=== PATIENT | male | born 1940 | race Caucasian/White ===

== ENCOUNTER 2020-11-27 15:59 | Inpatient (IN) | payer MEDICARE, OTHER, SELFPAY ==
[2020-11-27] VITALS (25 sets, daily range): BP systolic 133–194; BP diastolic 61–85; PULSE 64–82; RESP 12–31; TEMP 36.4; O2SAT 87–100; BMI 32.3
--- NOTE | ~2020-11-27 | CT_ITS ---
EXAMINATION: CTA chest PE protocol DATE: 11/27/2020 18:57 INDICATION: Cough and shortness of breath TECHNIQUE: Computed tomography angiography (CTA) of the chest was performed with 100 mL Omnipaque-350 intravenous contrast timed to evaluate the pulmonary arteries. Coronal maximum intensity projection 3D-reconstructions were created by the technologist. The dose-length product (DLP) was 645.04 mGy-cm. Automated exposure control and iterative reconstruction technique were employed. COMPARISON: None. FINDINGS: The pulmonary arteries are well-opacified. There are pulmonary emboli in the medial right l ower lobe. There are diffuse groundglass opacities throughout all lung zones. There is no pleural eff usion or pneumothorax. The heart size is upper limits of normal. There is mild bilateral hilar lympha denopathy, likely reactive. Calcified coronary artery atherosclerosis is noted. There is a small slid ing hiatal hernia. Gynecomastia is noted. Cysts of the visualized kidneys measure up to 3.5 cm on the left. There is moderate thoracic spondylosis. IMPRESSION: 1. Pulmonary emboli in the medial right lower lobe. 2. Diffuse lung disease, consistent with COVID 19 pneumonia. These findings were discussed with Dr. Ben Castle DO in the Emergency Department at 1915 hour s on 11/27/2020. Reviewed, dictated and finalized at location A. IMPRESSION: 1. Pulmonary emboli in the medial right lower lobe. 2. Diffuse lung disease, consistent with COVID 19 pneumonia. These findings were discussed with Dr. Ben Castle DO in the Emergency D epartment at 1915 hours on 11/27/2020.
--- NOTE | ~2020-11-27 | XR_ITS ---
EXAMINATION: XR chest 1V portable EXAM DATE: 11/27/2020 16:36 INDICATION: cough,COVID +, shortness of breath. TECHNIQUE: Portable AP frontal chest x-ray was obtained. There is no prior study for comparison. FINDINGS: Scattered small to moderate amount of ill-defined bilateral airspace disease, appearance is consistent with provided history of COVID 19. Cardiomediastinal silhouette is normal. There is no pn eumothorax suspected. There are no pleural effusions. There is aortic arteriosclerosis. There are no osseous abnormalities identified. IMPRESSION: Small to moderate amount of COVID pneumonia. Reviewed, dictated and finalized at location A.
--- NOTE | 2020-11-27 16:27 | ED.SOB ---
HPI - SOB/Dyspnea General Chief Complaint: Shortness of Breath/Dyspnea Stated Complaint: SOB Time Seen by Provider: 11/27/20 16:09 Source: RN notes reviewed History of Present Illness HPI Narrative: Patient presents emergency department from home for shortness of breath. Patient states he tested positive for COVID-19 approximately 1 week ago. Patient states he been progressively more short of breath for the past 4 days when EMS arrived today the patient was noted to have an O2 sat in the low 80s and was placed on nonrebreather patient denies any fevers or chills chest pain abdominal pain nausea vomiting or any other symptoms states he had his first of his 2 Covid vaccinations but states that it made him sick and he did not receive his second 1 he denies tobacco use Related Data Home Medications Medication Instructions Recorded Confirmed allopurinol 11/27/20 aspirin PO 11/27/20 atorvastatin 11/27/20 finasteride mg 11/27/20 hydrochlorothiazide 11/27/20 nifedipine PO 11/27/20 Allergies Allergy/AdvReac Type Severity Reaction Status Date / Time No Known Allergies Allergy Mild Verified 11/27/20 16:05 Review of Systems Review of Systems: Gen.: Denies fevers or chills ENT: Denies congestion Respiratory: See HPI CV: Denies chest pain or palpitations GI: Denies abdominal pain nausea, emesis or diarrhea Musculoskeletal: Denies back pain or muscle pain Neuro: Denies numbness, tingling, weakness or focal weakness Skin: Denies rash Except as documented, all other systems reviewed and negative PMFSH Past Medical History Medical History (Updated 11/27/20 @ 19:27 by Ben Castle DO) Hypercholesterolemia Social History Social History (Updated 11/27/20 @ 16:28 by Ben Castle DO) Smoking status: Never smoker Exam Narrative: APPEARANCE: No acute distress, nontoxic, resting in bed EYES: EOMI HEENT: Normocephalic, atraumatic, OMM RESPIRATORY: No respiratory distress coarse breath sounds throughout bilateral lung olsen, no wheezing CARDIOVASCULAR: Regular rate and rhythm without murmurs rubs or gallops. ABDOMINAL: Soft, nontender, nondistended, no rebound or guarding MUSCULOSKELETAl: Moves all extremities. No clubbing, cyanosis or edema. NEURO: Awake and alert. Following commands, speech normal, no focal deficits SKIN:: Warm, dry. No rashes lesions or abrasions PSYCHIATRIC: Normal affect/mood, Course Course Emergency Course: Discussed with Dr. Osei presentation work-up agrees with admission at this time Discussed with patient and family results of workup and diagnosis. Discussed need for admission. Patient and family understand and agree to current treatment plan Vital Signs Vital signs: Vital Signs Pulse Rate 74 11/27/20 15:58 Respiratory Rate 24 H 11/27/20 15:58 Blood Pressure 163/85 H 11/27/20 15:58 Pulse Oximetry 91 11/27/20 15:58 Pulse Rate 73 11/27/20 18:31 Respiratory Rate 14 11/27/20 18:31 Blood Pressure 157/77 H 11/27/20 18:31 Pulse Oximetry 100 11/27/20 18:31 MDM - SOB/Dyspnea Lab Data Result diagrams: 11/27/20 16:26 11/27/20 16:26 Labs: Lab Results 11/27/20 11/27/20 11/27/20 Range/Units 16:26 16:26 16:26 WBC 7.8 (4.5-10.0) K/mm3 RBC 5.08 (4.6-6.20) M/mm3 Hgb 14.9 (14.0-18.0) g/dL Hct 43.6 (42.0-52.0) % MCV 85.8 (80-100) fl MCH 29.3 (26-34) pg MCHC 34.2 (32-36) g/dl RDW 14.2 (11.5-14.5) % Plt Count 269 (150-375) k/mm3 MPV 9.7 (7.4-10.4) fl Immature Gran % (Auto) 0.9 H (0-0.5) % Neut % (Auto) 83.9 H (45.5-73.1) % Lymph % (Auto) 10.2 L (18.3-44.2) % Evangeline % (Auto) 4.8 (2.6-8.5) % Eos % (Auto) 0.1 (0-4.4) % Baso % (Auto) 0.1 L (0.2-1.2) % Lymph # (Auto) 0.80 L (0.9-3.2) K/mm3 Evangeline # (Auto) 0.4 (0.1-0.6) K/mm3 Eos # (Auto) 0.0 (0-0.3) K/mm3 Baso # (Auto) 0.0 (0.0-0.1) K/mm3 Abs Immat Gran (auto) 0.07 H (0.
--- NOTE | 2020-11-27 16:29 | ECG_ITS ---
Measurements Intervals [place] Rate: 66 P: 67 [place]: 135 QRS: 34 QRSD: 87 T: 60 QT: 435 QTc: 458 Interpretive Statements SINUS RHYTHM ATRIAL PREMATURE COMPLEX CONSIDER INFERIOR INFARCT, AGE INDETERMINATE BORDERLINE T WAVE ABNORMALITY- HIGH LATERAL LEADS BASELINE WANDER- I, II, AVR, AVL, AVF, V1-V6 ABNORMAL ECG Electronically Signed On 11-27-2020 17:13:12 CDT by Glen Hernandez D.O.
[2020-11-27 16:43] LABS: Basophils Percent Auto 0.1 % (0.2-1.2); Eosinophils Percent Auto 0.1 % (0-4.4); Hematocrit 43.6 % (42.0-52.0); Hemoglobin 14.9 g/dL (14.0-18.0); Immature Granulocyte Absolute 0.07 K/mm3 (0.00-0.031); Immature Granulocyte Percent A 0.9 % (0-0.5); Lymphocytes Percent Auto 10.2 % (18.3-44.2); Mean Corpuscular HGB Conc 34.2 g/dl (32-36); Mean Corpuscular Hemoglobin 29.3 pg (26-34); Mean Corpuscular Volume 85.8 fl (80-100); Mean Platelet Volume 9.7 fl (7.4-10.4); Monocytes Absolute Auto 0.4 K/mm3 (0.1-0.6); Monocytes Percent Auto 4.8 % (2.6-8.5); Neutrophils Absolute Auto 6.6 K/mm3 (1.3-6.7); Neutrophils Percent Auto 83.9 % (45.5-73.1); Platelet Count Result 269 k/mm3 (150-375); Red Blood Count 5.08 M/mm3 (4.6-6.20); Red Cell Distribution Width 14.2 % (11.5-14.5); White Blood Count 7.8 K/mm3 (4.5-10.0)
[2020-11-27 16:51] LABS: Lactic Acid Reflex 2.9 mmol/L (0.7-2.1)
[2020-11-27 16:58] LABS: Alanine Aminotransferase 53 U/L (4-50); Albumin Level 4.4 g/dL (3.5-5.1); Alkaline Phosphatase 99 U/L (38-126); Anion Gap 15 mmol/L (8-16); Aspartate Amino Transferase 51 U/L (17-59); Bilirubin,Total 1.2 mg/dL (0.2-1.3); Blood Urea Nitrogen 28 mg/dL (9-20); CRP 6.7 mg/dL (<1.0); Calcium 9.2 mg/dL (8.4-10.2); Carbon Dioxide 30 mmol/L (22-30); Chloride 98 mmol/L (98-107); Estimated CRCL calculation 61 ml/min; Estimated Glomerular Filt Rate > 60; Glucose 145 mg/dL (65-110); Lactate Dehydrogenase 1016 U/L (313-618); Sodium 143 mmol/L (137-145)
[2020-11-27 17:08] LABS: D Dimer 7.12 ug/mL (<0.48)
[2020-11-27] MEDS: POTASSIUM CHLORIDE 20 MEQ TABLET 40 MEQ PO (18:41)
--- NOTE | 2020-11-27 19:22 | PM.IMHP ---
H&P: HPI History of Present Illness Date/Time: 11/27/20 19:22 Chief Complaint: Shortness of breath Narrative: This is an 80-year-old male with past medical history significant for dyslipidemia, hypertension, benign prostatic hyperplasia, gout. Patient presented to emergency room via EMS after his home pulse oximeter was down to 81% upon EMS arrival these number was confirmed patient was found to be saturating at 80% on room air and was placed on oxygen and brought to the emergency room. Patient tested positive for COVID a few days prior. He has been getting progressively more short of breath, dry cough, body aches and pain, fevers chills, poor appetite, generalized malaise. Preliminary workup was significant for CT angiogram PE protocol of the chest with pulmonary emboli and diffuse COVID-19 pneumonia infiltrates. Patient was on 15 L of oxygen at the time of my visit. Decision has been made to admit the patient for further management evaluation and treatment. Review of Systems Review of Systems: Shortness of breath, cough, generalized malaise ,poor appetite, low pulse ox. Constitutional: Constitutional: Reports chills, Reports fatigue, Reports fever(s), Reports lethargy, Reports malaise, Reports night sweats, Reports poor appetite and Reports weakness Eyes: Eyes: Denies change in vision ENT: Denies dysphagia, Denies nasal congestion, Denies nasal discharge, Denies nasal obstruction and Denies odynophagia Cardiovascular: Cardiovascular: Denies chest pain at rest, Denies chest pain with activity, Denies leg edema, Denies lightheadedness, Denies radiating jaw, neck or arm pain, Denies palpitations, Denies dyspnea on exertion and Denies orthopnea Respiratory: Respiratory: Reports cough, Reports dyspnea and Reports dyspnea on exertion Gastrointestinal: Gastrointestinal: Denies abdominal pain, Denies dyspepsia, Denies heartburn, Denies diarrhea, Denies nausea and Denies vomiting Genitourinary: Genitourinary: Reports no additional male genitourinary complaints Musculoskeletal: Musculoskeletal: Reports myalgias Integumentary/Breasts: Skin/Breast: Reports system reviewed and no additional complaints, except as docu Neurologic: Reports system reviewed and no additional complaints, except as documented Psychiatric: Psychiatric: Reports no additional psychiatric complaints Endocrine: Endocrine: Reports no additional endocrine complaints Hematologic/Lymphatic: Hematologic/Lymphatic: Reports no additional hematologic/lymphatic complaints Allergic/Immunologic: Allergic/Immunologic: Reports no additional allergic/immunologic complaints [facility] Past Medical History Medical History (Updated 11/27/20 @ 19:27 by Ben Castle DO) Hypercholesterolemia Social History Social History (Updated 11/27/20 @ 16:28 by Ben Castle DO) Smoking status: Never smoker Meds Home Medications and Allergies Home Medications Medication Instructions Recorded Confirmed Type allopurinol 11/27/20 History aspirin PO 11/27/20 History atorvastatin 11/27/20 History finasteride mg 11/27/20 History hydrochlorothiazide 11/27/20 History nifedipine PO 11/27/20 History Allergies Allergy/AdvReac Type Severity Reaction Status Date / Time No Known Allergies Allergy Mild Verified 11/27/20 16:05 Vital Signs Vital Signs - 24 hr 11/27/20 15:58 11/27/20 16:12 11/27/20 16:16 Pulse Rate 74 66 Respiratory Rate 24 H 21 H Blood Pressure 163/85 H 165/61 H Pulse Oximetry 91 95 97 11/27/20 16:17 11/27/20 16:30 11/27/20 16:31 Pulse Rate 64 69 71 Respiratory Rate 24 H 16 18 Blood Pressure 148/70 H Pulse Oximetry 98 98 94 11/27/20 16:45 11/27/20 16:46 11/27/20 17:04 Pulse Rate 66 68 72 Respiratory Rate 21 H 23 H 31 H Blood Pressure 133/61 Pulse Oximetry 95 94 87 L 11/27/20 17:09 11/27/20 17:15 11/27/20 17:16 Pulse Rate 68 66 66 Respiratory Rate 24 H 21 H 19 Blood Pressure 146/63 H 170/65 H Pulse Oximetry 100
[2020-11-27 19:36] LABS: Reflex Lactic Acid Yes or No Add Lactic
[2020-11-27] MEDS: ENOXAPARIN 120 MG/0.8 ML SYRINGE 110 MG SUB-Q (19:49)
[2020-11-27] MEDS: DEXAMETHASONE SOD PHOS INJ 4 MG/ML VIAL 6 MG IV PUSH (19:49)
[2020-11-27 21:28] LABS: Lactic Acid 1.9 mmol/L (0.7-2.1)
[2020-11-28] VITALS (15 sets, daily range): BP systolic 120–172; BP diastolic 50–66; PULSE 54–85; RESP 14–24; TEMP 36–36.6; O2SAT 92–100
[2020-11-28 03:04] LABS: Basophils Percent Auto 0.1 % (0.2-1.2); Hematocrit 41.9 % (42.0-52.0); Hemoglobin 14.2 g/dL (14.0-18.0); Immature Granulocyte Absolute 0.08 K/mm3 (0.00-0.031); Immature Granulocyte Percent A 1.1 % (0-0.5); Lymphocytes Percent Auto 8.1 % (18.3-44.2); Mean Corpuscular HGB Conc 33.9 g/dl (32-36); Mean Corpuscular Hemoglobin 29.3 pg (26-34); Mean Corpuscular Volume 86.6 fl (80-100); Mean Platelet Volume 9.9 fl (7.4-10.4); Monocytes Absolute Auto 0.3 K/mm3 (0.1-0.6); Monocytes Percent Auto 3.7 % (2.6-8.5); Neutrophils Absolute Auto 6.4 K/mm3 (1.3-6.7); Platelet Count Result 228 k/mm3 (150-375); Red Blood Count 4.84 M/mm3 (4.6-6.20); Red Cell Distribution Width 14.1 % (11.5-14.5); White Blood Count 7.4 K/mm3 (4.5-10.0)
[2020-11-28 03:25] LABS: Alanine Aminotransferase 48 U/L (4-50); Albumin Level 3.9 g/dL (3.5-5.1); Alkaline Phosphatase 93 U/L (38-126); Anion Gap 8 mmol/L (8-16); Aspartate Amino Transferase 44 U/L (17-59); Blood Urea Nitrogen 28 mg/dL (9-20); Calcium 8.8 mg/dL (8.4-10.2); Carbon Dioxide 33 mmol/L (22-30); Chloride 100 mmol/L (98-107); Estimated CRCL calculation 72 ml/min; Estimated Glomerular Filt Rate > 60; Glucose 155 mg/dL (65-110); Potassium 3.2 mmol/L (3.4-5.0); Sodium 141 mmol/L (137-145)
[2020-11-28 03:42] LABS: INR 1.1; Prothrombin Time 14.3 Seconds (11.1-14.7)
--- NOTE | 2020-11-28 04:23 | PC.NURSE ---
This patient, Osmany Silveira, was admitted to IMU Room 209-01. Patient/family oriented to hospital policies and general routines including ID bracelet, bed and alarms, visiting hours, pain management, procedures, bathroom and other care routines, personal items, smoking policy, room service/diet, and visiting hours. Information on how to activate the Rapid Response Team has been discussed. Patient/Family are encouraged to report perceived risks to care and to ask questions if they do not understand what they are told or what they should do.
[2020-11-28] MEDS: REMDESIVIR 200 MG/NS 250 ML 200 MG/250 ML BAG 250 MG IVPB (05:38)
[2020-11-28] MEDS: DEXAMETHASONE SOD PHOS INJ 4 MG/ML VIAL 6 MG IV PUSH (09:39)
[2020-11-28] MEDS: FINASTERIDE 5 MG TABLET BY MOUTH (09:39)
[2020-11-28] MEDS: ASPIRIN 81 MG ENTERIC TABLET PO (09:39)
[2020-11-28] MEDS: ENOXAPARIN 120 MG/0.8 ML SYRINGE 110 MG SUB-Q ×2 (09:39→21:05)
[2020-11-28] MEDS: allopurinoL 300 MG TABLET BY MOUTH (09:39)
[2020-11-28] MEDS: NIFEdipine 30 MG TAB.ER.24 90 MG PO (09:39)
[2020-11-28] MEDS: DEXAMETHASONE SOD PHOS INJ 4 MG/ML VIAL 14 MG IV PUSH (14:11)
[2020-11-28] MEDS: POTASSIUM CHLORIDE 20 MEQ TABLET 40 MEQ PO (14:13)
[2020-11-28] MEDS: FUROSEMIDE INJ 40 MG/4 ML VIAL IV PUSH (14:13)
--- NOTE | 2020-11-28 16:52 | PM.IMPN ---
Progress Note: A&P Assessment and Plan (1) Acute respiratory failure with hypoxia: Code(s): J96.01 - Acute respiratory failure with hypoxia Status: Acute Assessment and Plan: Patient currently requiring 15 L on high-flow nasal cannula Breathing treatments Continuous pulse ox try and keep oxygen saturation between 88 and 92% 11/28 Interval history: will start patient on dexamethasone 20mg IV daily for 5 days, remedesivir for 5 days, patient states is feeling much better compared to when he arrived not a short of breath, denies any fever or chills, currently on 15 L oxygen, plan is to wean the patient off oxygen as tolerated will continue to and further recommendation to follow, patient is instructed to sleep on prone position as much as possible, will continue to monitor. (2) Pulmonary embolism: Code(s): I26.99 - Other pulmonary embolism without acute cor pulmonale Status: Acute Assessment and Plan: On therapeutic Lovenox (3) COVID-19: Code(s): U07.1 - COVID-19 Status: Acute Assessment and Plan: Will start remdesivir dexamethasone Rocephin and Zithromax added for antibacterial coverage Subjective Date/time seen: 11/28/20 16:52 Chief Complaint: Shortness of breath Narrative: This is an 80-year-old male with past medical history significant for dyslipidemia, hypertension, benign prostatic hyperplasia, gout. Patient presented to emergency room via EMS after his home pulse oximeter was down to 81% upon EMS arrival these number was confirmed patient was found to be saturating at 80% on room air and was placed on oxygen and brought to the emergency room. Patient tested positive for COVID a few days prior. He has been getting progressively more short of breath, dry cough, body aches and pain, fevers chills, poor appetite, generalized malaise. Preliminary workup was significant for CT angiogram PE protocol of the chest with pulmonary emboli and diffuse COVID-19 pneumonia infiltrates. Patient was on 15 L of oxygen at the time of my visit. Decision has been made to admit the patient for further management evaluation and treatment. 11/28 Interval history: will start patient on dexamethasone 20mg IV daily for 5 days, remedesivir for 5 days, patient states is feeling much better compared to when he arrived not a short of breath, denies any fever or chills, currently on 15 L oxygen, plan is to wean the patient off oxygen as tolerated will continue to and further recommendation to follow, patient is instructed to sleep on prone position as much as possible, will continue to monitor. Review of Systems Review of Systems: All systems reviewed & are unremarkable except as noted in HPI and below Exam Narrative: Patient is comfortable, NAD HEENT: eyes are clear and none icteric, high-flow nasal cannula LUNGS: normal respiratory effort ABD: distended Lower extremities: no edema SKIN: nonjaundiced Neuro: grossly intact normal speech. Objective Data Vital Signs Vital Signs: Vital Signs - 24 hr 11/27/20 17:04 11/27/20 17:09 11/27/20 17:15 Temperature Pulse Rate 72 68 66 Respiratory Rate 31 H 24 H 21 H Blood Pressure 146/63 H Pulse Oximetry 87 L 100 99 11/27/20 17:16 11/27/20 17:31 11/27/20 17:39 Temperature Pulse Rate 66 79 72 Respiratory Rate 19 23 H 16 Blood Pressure 170/65 H 169/70 H Pulse Oximetry 98 100 99 11/27/20 17:45 11/27/20 17:46 11/27/20 18:01 Temperature Pulse Rate 79 76 73 Respiratory Rate 21 H 19 19 Blood Pressure 163/83 H 183/84 H Pulse Oximetry 100 96 95 11/27/20 18:02 11/27/20 18:15 11/27/20 18:30 Temperature Pulse Rate 74 70 73 Respiratory Rate 16 12 12 Blood Pressure Pulse Oximetry 95 97 100 11/27/20 18:31 11/27/20 19:45 11/27/20 21:56 Temperature Pulse Rate 73 69 69 Respiratory Rate 14 13 16 Blood Pressure 157/77 H 194/77 H 185/76 H Pulse Oximetry 100 98 100 11/27/20 23:23 11/27/20 23:25 11/28/20
[2020-11-28] MEDS: OPTI-GEN TAB 1 TABLET PO (18:36)
[2020-11-28] MEDS: ATORVASTATIN 40 MG TABLET 80 MG PO (18:36)
[2020-11-28] MEDS: NIACIN SA 500 MG TABLET 1000 MG PO (21:05)
[2020-11-29] VITALS (15 sets, daily range): BP systolic 109–134; BP diastolic 43–67; PULSE 59–92; RESP 20–24; TEMP 35.9–36.6; O2SAT 90–96
[2020-11-29] MEDS: WATER FOR IRRIGATION, STERILE 1,000 ML BOTTLE 1000 ML (00:25)
[2020-11-29 06:06] LABS: Basophils Percent Auto 0.1 % (0.2-1.2); Hematocrit 36.8 % (42.0-52.0); Hemoglobin 12.5 g/dL (14.0-18.0); Immature Granulocyte Absolute 0.15 K/mm3 (0.00-0.031); Immature Granulocyte Percent A 1.3 % (0-0.5); Lymphocytes Absolute Auto 0.87 K/mm3 (0.9-3.2); Lymphocytes Percent Auto 7.6 % (18.3-44.2); Mean Corpuscular Hemoglobin 28.7 pg (26-34); Mean Corpuscular Volume 84.6 fl (80-100); Mean Platelet Volume 10.1 fl (7.4-10.4); Monocytes Absolute Auto 0.6 K/mm3 (0.1-0.6); Monocytes Percent Auto 5.1 % (2.6-8.5); Neutrophils Absolute Auto 9.9 K/mm3 (1.3-6.7); Neutrophils Percent Auto 85.9 % (45.5-73.1); Platelet Count Result 279 k/mm3 (150-375); Red Blood Count 4.35 M/mm3 (4.6-6.20); White Blood Count 11.5 K/mm3 (4.5-10.0)
[2020-11-29 06:16] LABS: Alanine Aminotransferase 88 U/L (4-50); Albumin Level 3.6 g/dL (3.5-5.1); Alkaline Phosphatase 73 U/L (38-126); Anion Gap 7 mmol/L (8-16); Aspartate Amino Transferase 61 U/L (17-59); Bilirubin,Total 0.6 mg/dL (0.2-1.3); Blood Urea Nitrogen 36 mg/dL (9-20); CRP 4.2 mg/dL (<1.0); Calcium 8.4 mg/dL (8.4-10.2); Carbon Dioxide 34 mmol/L (22-30); Chloride 99 mmol/L (98-107); Estimated CRCL calculation 59 ml/min; Estimated Glomerular Filt Rate > 60; Glucose 155 mg/dL (65-110); Sodium 140 mmol/L (137-145)
[2020-11-29 06:19] LABS: INR 1.1; Prothrombin Time 14.2 Seconds (11.1-14.7)
[2020-11-29] MEDS: POTASSIUM CHLORIDE 20 MEQ TABLET 40 MEQ PO (10:21)
[2020-11-29] MEDS: OPTI-GEN TAB 1 TABLET PO ×2 (10:22→16:57)
[2020-11-29] MEDS: ASPIRIN 81 MG ENTERIC TABLET PO (10:22)
[2020-11-29] MEDS: FINASTERIDE 5 MG TABLET BY MOUTH (10:22)
[2020-11-29] MEDS: CHOLECALCIFEROL 1,000 UNITS TABLET 2000 UNITS PO (10:22)
[2020-11-29] MEDS: NIFEdipine 30 MG TAB.ER.24 90 MG PO (10:23)
[2020-11-29] MEDS: allopurinoL 300 MG TABLET BY MOUTH (10:23)
[2020-11-29] MEDS: ENOXAPARIN 120 MG/0.8 ML SYRINGE 110 MG SUB-Q ×2 (10:23→20:53)
[2020-11-29] MEDS: FUROSEMIDE INJ 40 MG/4 ML VIAL IV PUSH (10:28)
[2020-11-29] MEDS: REMDESIVIR 100 MG/NS 250 ML 100 MG/250 ML BAG 250 MG IVPB (11:09)
--- NOTE | 2020-11-29 14:17 | PM.IMPN ---
Progress Note: A&P Assessment and Plan (1) Acute respiratory failure with hypoxia: Code(s): J96.01 - Acute respiratory failure with hypoxia Status: Acute Assessment and Plan: Patient currently requiring 15 L on high-flow nasal cannula Breathing treatments Continuous pulse ox try and keep oxygen saturation between 88 and 92% 11/29/20 14:17 11/28 Interval history: will start patient on dexamethasone 20mg IV daily for 5 days, remedesivir for 5 days, patient states is feeling much better compared to when he arrived not a short of breath, denies any fever or chills, currently on 15 L oxygen, plan is to wean the patient off oxygen as tolerated will continue to and further recommendation to follow, patient is instructed to sleep on prone position as much as possible, will continue to monitor. 11/29 Interval history: Patient with COVID-19 and treated with a high-dose dexamethasone 20 mg IV q.day 04/04, and remdesivir 04/04 patient states is feeling much better currently on 5 L nasal cannula no fever or chills, denies any cough or shortness of breath, clinically stable, patient with pulmonary emboli on Lovenox therapeutic dose once patient is off isolation for COVID will do cardiac echo to further evaluate, will check with nurse wound care for affordability for noval anticoagulation, patient is encouraged to sleep prone position, will have PT OT evaluate the patient, continue to monitor further recommendation to follow (2) Pulmonary embolism: Code(s): I26.99 - Other pulmonary embolism without acute cor pulmonale Status: Acute Assessment and Plan: On therapeutic Lovenox (3) COVID-19: Code(s): U07.1 - COVID-19 Status: Acute Assessment and Plan: Will start remdesivir dexamethasone Rocephin and Zithromax added for antibacterial coverage Subjective Date/time seen: 11/29/20 14:17 11/28 Interval history: will start patient on dexamethasone 20mg IV daily for 5 days, remedesivir for 5 days, patient states is feeling much better compared to when he arrived not a short of breath, denies any fever or chills, currently on 15 L oxygen, plan is to wean the patient off oxygen as tolerated will continue to and further recommendation to follow, patient is instructed to sleep on prone position as much as possible, will continue to monitor. 11/29 Interval history: Patient with COVID-19 and treated with a high-dose dexamethasone 20 mg IV q.day 04/04, and remdesivir 2/ patient states is feeling much better currently on 5 L nasal cannula no fever or chills, denies any cough or shortness of breath, clinically stable, patient with pulmonary emboli on Lovenox therapeutic dose once patient is off isolation for COVID will do cardiac echo to further evaluate, will check with nurse wound care for affordability for noval anticoagulation, patient is encouraged to sleep prone position, will have PT OT evaluate the patient, continue to monitor further recommendation to follow Review of Systems Review of Systems: All systems reviewed & are unremarkable except as noted in HPI and below Exam Narrative: Patient is comfortable, NAD HEENT: eyes are clear and none icteric, high-flow nasal cannula LUNGS: normal respiratory effort ABD: distended Lower extremities: no edema SKIN: nonjaundiced Neuro: grossly intact normal speech. Objective Data Vital Signs Vital Signs: Vital Signs - 24 hr 11/28/20 16:00 11/28/20 18:00 11/28/20 20:00 Temperature 97.4 F L Pulse Rate 84 77 77 Respiratory Rate 24 H Blood Pressure 141/64 H Pulse Oximetry 97 11/28/20 21:00 11/28/20 22:00 11/28/20 23:15 Temperature 96.8 F L Pulse Rate 77 Respiratory Rate 20 Blood Pressure 120/50 L Pulse Oximetry 96 96 96 11/29/20 00:00 11/29/20 02:00 11/29/20 03:10 Temperature 97.1 F L Pulse Rate 79 76 Respiratory Rate 24 H Blood Pressure 122/55 L Pulse Oximetry 93 91 11/29/20 04:00 11/29/20 05:54
--- NOTE | 2020-11-29 14:33 | PC.NURSE ---
This patient, Osmany Silveira, was received from [IMU ] on 11/29/20 at 1420. Patient/family oriented to unit policies and routines. pt orientated to use of call light and isolation status.
--- NOTE | 2020-11-29 14:40 | PC.NURSE ---
This patient, Osmany Silveira, was transferred to [ [id number] ] on 11/29/20 at 1420. Personal belongings sent with patient. Report given to [ JUDITH Watson. ]. Appropriate documentation sent with patient.
[2020-11-29] MEDS: ATORVASTATIN 40 MG TABLET 80 MG PO (16:57)
[2020-11-29] MEDS: NIACIN SA 500 MG TABLET 1000 MG PO (20:54)
[2020-11-30] VITALS (10 sets, daily range): BP systolic 109–130; BP diastolic 45–58; PULSE 60–89; RESP 18–20; TEMP 36.1–36.6; O2SAT 90–96
[2020-11-30 06:42] LABS: Basophils Percent Auto 0.2 % (0.2-1.2); Eosinophils Percent Auto 0.1 % (0-4.4); Hematocrit 39.4 % (42.0-52.0); Hemoglobin 12.8 g/dL (14.0-18.0); Immature Granulocyte Absolute 0.16 K/mm3 (0.00-0.031); Immature Granulocyte Percent A 1.6 % (0-0.5); Lymphocytes Absolute Auto 0.93 K/mm3 (0.9-3.2); Lymphocytes Percent Auto 9.2 % (18.3-44.2); Mean Corpuscular HGB Conc 32.5 g/dl (32-36); Mean Corpuscular Hemoglobin 28.2 pg (26-34); Mean Corpuscular Volume 86.8 fl (80-100); Mean Platelet Volume 10.1 fl (7.4-10.4); Monocytes Absolute Auto 0.7 K/mm3 (0.1-0.6); Monocytes Percent Auto 6.4 % (2.6-8.5); Neutrophils Absolute Auto 8.4 K/mm3 (1.3-6.7); Neutrophils Percent Auto 82.5 % (45.5-73.1); Platelet Count Result 306 k/mm3 (150-375); Red Blood Count 4.54 M/mm3 (4.6-6.20); White Blood Count 10.2 K/mm3 (4.5-10.0)
[2020-11-30 06:55] LABS: INR 1.1; Prothrombin Time 14.1 Seconds (11.1-14.7)
[2020-11-30 07:03] LABS: Alanine Aminotransferase 88 U/L (4-50); Albumin Level 3.5 g/dL (3.5-5.1); Alkaline Phosphatase 67 U/L (38-126); Anion Gap 9 mmol/L (8-16); Aspartate Amino Transferase 52 U/L (17-59); Bilirubin,Total 0.7 mg/dL (0.2-1.3); Blood Urea Nitrogen 37 mg/dL (9-20); CRP 1.8 mg/dL (<1.0); Calcium 8.5 mg/dL (8.4-10.2); Carbon Dioxide 29 mmol/L (22-30); Chloride 101 mmol/L (98-107); Estimated CRCL calculation 72 ml/min; Estimated Glomerular Filt Rate > 60; Glucose 133 mg/dL (65-110); Sodium 139 mmol/L (137-145)
[2020-11-30] MEDS: ASPIRIN 81 MG ENTERIC TABLET PO (08:27)
[2020-11-30] MEDS: NIFEdipine 30 MG TAB.ER.24 90 MG PO (08:27)
[2020-11-30] MEDS: ENOXAPARIN 120 MG/0.8 ML SYRINGE 110 MG SUB-Q ×2 (08:27→21:05)
[2020-11-30] MEDS: OPTI-GEN TAB 1 TABLET PO ×2 (08:27→17:07)
[2020-11-30] MEDS: CHOLECALCIFEROL 1,000 UNITS TABLET 2000 UNITS PO (08:27)
[2020-11-30] MEDS: allopurinoL 300 MG TABLET BY MOUTH (08:27)
[2020-11-30] MEDS: FINASTERIDE 5 MG TABLET BY MOUTH (08:27)
[2020-11-30] MEDS: FUROSEMIDE INJ 40 MG/4 ML VIAL IV PUSH (08:28)
[2020-11-30] MEDS: POTASSIUM CHLORIDE 20 MEQ TABLET 40 MEQ PO (09:34)
[2020-11-30] MEDS: REMDESIVIR 100 MG/NS 250 ML 100 MG/250 ML BAG 250 MG IVPB (10:07)
--- NOTE | 2020-11-30 13:37 | PM.IMPN ---
Progress Note: A&P Assessment and Plan (1) Acute respiratory failure with hypoxia: Code(s): J96.01 - Acute respiratory failure with hypoxia Status: Acute Assessment and Plan: Patient currently requiring 15 L on high-flow nasal cannula Breathing treatments Continuous pulse ox try and keep oxygen saturation between 88 and 92% 11/30/2020 13:35 11/28 Interval history: will start patient on dexamethasone 20mg IV daily for 5 days, remedesivir for 5 days, patient states is feeling much better compared to when he arrived not a short of breath, denies any fever or chills, currently on 15 L oxygen, plan is to wean the patient off oxygen as tolerated will continue to and further recommendation to follow, patient is instructed to sleep on prone position as much as possible, will continue to monitor. 11/29 Interval history: Patient with COVID-19 and treated with a high-dose dexamethasone 20 mg IV q.day 2/5, and remdesivir 2/5 patient states is feeling much better currently on 5 L nasal cannula no fever or chills, denies any cough or shortness of breath, clinically stable, patient with pulmonary emboli on Lovenox therapeutic dose once patient is off isolation for COVID will do cardiac echo to further evaluate, will check with childcare aide for affordability for noval anticoagulation, patient is encouraged to sleep prone position, will have PT OT evaluate the patient, continue to monitor further recommendation to follow. 11/30 Interval history: Patient with COVID-19 and treated with a high-dose dexamethasone 20 mg IV q.day 2/5, and remdesivir 3/5 patient states is feeling much better currently on 5 L nasal cannula, no fever or chills, denies any cough or shortness of breath, clinically stable, patient remains clinically stable will do the home O2 eval tomorrow and possibly discharge the patient home, patient with pulmonary emboli on Lovenox therapeutic dose once patient is off isolation for COVID will do cardiac echo to further evaluate, will check with childcare aide for affordability for noval anticoagulation, patient is encouraged to sleep prone position, will have PT OT evaluate the patient, continue to monitor further recommendation to follow. (2) Pulmonary embolism: Code(s): I26.99 - Other pulmonary embolism without acute cor pulmonale Status: Acute Assessment and Plan: On therapeutic Lovenox (3) COVID-19: Code(s): U07.1 - COVID-19 Status: Acute Assessment and Plan: Will start remdesivir dexamethasone Rocephin and Zithromax added for antibacterial coverage Subjective Date/time seen: 11/30/20 13:37 11/28 Interval history: will start patient on dexamethasone 20mg IV daily for 5 days, remedesivir for 5 days, patient states is feeling much better compared to when he arrived not a short of breath, denies any fever or chills, currently on 15 L oxygen, plan is to wean the patient off oxygen as tolerated will continue to and further recommendation to follow, patient is instructed to sleep on prone position as much as possible, will continue to monitor. 11/29 Interval history: Patient with COVID-19 and treated with a high-dose dexamethasone 20 mg IV q.day 2/5, and remdesivir 2/5 patient states is feeling much better currently on 5 L nasal cannula no fever or chills, denies any cough or shortness of breath, clinically stable, patient with pulmonary emboli on Lovenox therapeutic dose once patient is off isolation for COVID will do cardiac echo to further evaluate, will check with childcare aide for affordability for noval anticoagulation, patient is encouraged to sleep prone position, will have PT OT evaluate the patient, continue to monitor further recommendation to follow. 11/30 Interval history: Patient with COVID-19 and treated with a high-dose dexamethasone 20 mg IV q.day 2/5, and remdesivir 3/5 patient states is feeling much better currently on 5 L nasal cannula, no fever or chills,
[2020-11-30] MEDS: ATORVASTATIN 40 MG TABLET 80 MG PO (17:07)
[2020-11-30] MEDS: NIACIN SA 500 MG TABLET 1000 MG PO (21:06)
[2020-12-01] VITALS (11 sets, daily range): BP systolic 124–146; BP diastolic 50–61; PULSE 70–91; RESP 18–20; TEMP 36.1–36.5; O2SAT 88–98
[2020-12-01 06:50] LABS: Basophils Percent Auto 0.4 % (0.2-1.2); Eosinophils Percent Auto 0.1 % (0-4.4); Hematocrit 39.2 % (42.0-52.0); Hemoglobin 13.1 g/dL (14.0-18.0); Immature Granulocyte Absolute 0.22 K/mm3 (0.00-0.031); Immature Granulocyte Percent A 2.2 % (0-0.5); Lymphocytes Absolute Auto 1.06 K/mm3 (0.9-3.2); Lymphocytes Percent Auto 10.6 % (18.3-44.2); Mean Corpuscular HGB Conc 33.4 g/dl (32-36); Mean Corpuscular Hemoglobin 28.7 pg (26-34); Monocytes Absolute Auto 0.8 K/mm3 (0.1-0.6); Monocytes Percent Auto 7.5 % (2.6-8.5); Neutrophils Absolute Auto 7.9 K/mm3 (1.3-6.7); Neutrophils Percent Auto 79.2 % (45.5-73.1); Platelet Count Result 333 k/mm3 (150-375); Red Blood Count 4.56 M/mm3 (4.6-6.20); Red Cell Distribution Width 13.9 % (11.5-14.5)
[2020-12-01 06:55] LABS: Alanine Aminotransferase 141 U/L (4-50); Albumin Level 3.5 g/dL (3.5-5.1); Alkaline Phosphatase 66 U/L (38-126); Anion Gap 5 mmol/L (8-16); Aspartate Amino Transferase 68 U/L (17-59); Bilirubin,Total 0.4 mg/dL (0.2-1.3); Blood Urea Nitrogen 35 mg/dL (9-20); CRP 1.8 mg/dL (<1.0); Calcium 8.7 mg/dL (8.4-10.2); Carbon Dioxide 36 mmol/L (22-30); Chloride 99 mmol/L (98-107); Estimated CRCL calculation 59 ml/min; Estimated Glomerular Filt Rate > 60; Glucose 127 mg/dL (65-110); Potassium 3.4 mmol/L (3.4-5.0); Sodium 140 mmol/L (137-145)
[2020-12-01 06:58] LABS: INR 1.1; Prothrombin Time 14.3 Seconds (11.1-14.7)
[2020-12-01] MEDS: APIXABAN 5 MG TABLET 10 MG PO (09:18)
[2020-12-01] MEDS: CHOLECALCIFEROL 1,000 UNITS TABLET 2000 UNITS PO (09:19)
[2020-12-01] MEDS: ASPIRIN 81 MG ENTERIC TABLET PO (09:19)
[2020-12-01] MEDS: NIFEdipine 30 MG TAB.ER.24 90 MG PO (09:19)
[2020-12-01] MEDS: OPTI-GEN TAB 1 TABLET PO (09:19)
[2020-12-01] MEDS: FINASTERIDE 5 MG TABLET BY MOUTH (09:19)
[2020-12-01] MEDS: FUROSEMIDE INJ 40 MG/4 ML VIAL IV PUSH (09:19)
[2020-12-01] MEDS: REMDESIVIR 100 MG/NS 250 ML 100 MG/250 ML BAG 250 MG IVPB (09:19)
[2020-12-01] MEDS: allopurinoL 300 MG TABLET BY MOUTH (09:19)
--- NOTE | 2020-12-01 11:14 | WPDCDIQUERY2 ---
CDI Query Clarification Request -CXR impression:Small to moderate amount of COVID pneumonia. -CTA impression:1. Pulmonary emboli in the medial right lower lobe. 2. Diffuse lung disease, consistent with COVID 19 pneumonia -Pt required 15L O2 on arrival and has been weaned down to 2L O2. -Pt on Remdesivir and Decadron - patient is instructed to sleep on prone position as much as possible documented. -COVID 19 and PE have been documented Please clarify if there is possibly an additional diagnosis that correlates to above findings. <Ale Ng RN - Last Filed: 12/01/20 11:26> Clarified Diagnosis (1) Acute respiratory failure with hypoxia: Code(s): J96.01 - Acute respiratory failure with hypoxia <Ale Ng RN - Last Filed: 12/01/20 11:26> Status: Acute <Ale Ng RN - Last Filed: 12/01/20 11:26> Assessment and Plan: Patient is diagnosed with PE and COVID-19 pneumonia, there are no additional diagnosis <Jean Paul Shi MD - Last Filed: 12/15/20 18:22>
--- NOTE | 2020-12-01 15:14 | HOMEO2EVAL ---
Evaluation was performed at [facility] Home Oxygen Evaluation RC: Home Oxygen (O2) Evaluation Start: 12/01/20 08:09 Freq: ONCE Status: Active Protocol: RPE Activity Type Activity Date Activity User E-Sign Co-Sign Detail Recorded Client Recorded Date Recorded By Document 12/01/20 14:50 KLA [email or web address] 12/01/20 15:13 KLA Document 12/01/20 15:02 [email or web address] [email or web address] 12/01/20 15:13 KLA Document 12/01/20 15:07 KLA [email or web address] 12/01/20 15:13 KLA 12/01/20 12/01/20 12/01/20 14:50 15:02 15:07 Home O2 Evaluation Test Phase Resting Resting Exercise Oxygen Delivery Room Air Nasal Cannula Nasal Cannula Oxygen Flow Rate (L/min) 1 1 Pulse Oximetry (90-100 %) 88 L 90 90 Pulse Rate (60-100 beats/min) 91 87 89 Activity Tolerance Good Home Oxygen Evaluation Comments Patient requires 1 lpm continuously Treatment Charges O2 Evaluation - Inpatient
--- NOTE | 2020-12-01 15:28 | PM.DS ---
DS: Admitting Diagnosis Discharge Date 12/01/2020 Admitting Diagnosis Shortness of breath DS: Discharge Diagnosis Discharge Diagnosis (1) Acute respiratory failure with hypoxia: Code(s): J96.01 - Acute respiratory failure with hypoxia Status: Acute Assessment and Plan: Patient currently requiring 15 L on high-flow nasal cannula Breathing treatments Continuous pulse ox try and keep oxygen saturation between 88 and 92% 11/30/2020 13:35 11/28 Interval history: will start patient on dexamethasone 20mg IV daily for 5 days, remedesivir for 5 days, patient states is feeling much better compared to when he arrived not a short of breath, denies any fever or chills, currently on 15 L oxygen, plan is to wean the patient off oxygen as tolerated will continue to and further recommendation to follow, patient is instructed to sleep on prone position as much as possible, will continue to monitor. 11/29 Interval history: Patient with COVID-19 and treated with a high-dose dexamethasone 20 mg IV q.day 2/5, and remdesivir 2/5 patient states is feeling much better currently on 5 L nasal cannula no fever or chills, denies any cough or shortness of breath, clinically stable, patient with pulmonary emboli on Lovenox therapeutic dose once patient is off isolation for COVID will do cardiac echo to further evaluate, will check with career professional for affordability for noval anticoagulation, patient is encouraged to sleep prone position, will have PT OT evaluate the patient, continue to monitor further recommendation to follow. 11/30 Interval history: Patient with COVID-19 and treated with a high-dose dexamethasone 20 mg IV q.day 2/5, and remdesivir 3/5 patient states is feeling much better currently on 5 L nasal cannula, no fever or chills, denies any cough or shortness of breath, clinically stable, patient remains clinically stable will do the home O2 eval tomorrow and possibly discharge the patient home, patient with pulmonary emboli on Lovenox therapeutic dose once patient is off isolation for COVID will do cardiac echo to further evaluate, will check with career professional for affordability for noval anticoagulation, patient is encouraged to sleep prone position, will have PT OT evaluate the patient, continue to monitor further recommendation to follow. (2) Pulmonary embolism: Code(s): I26.99 - Other pulmonary embolism without acute cor pulmonale Status: Acute Assessment and Plan: On therapeutic Lovenox (3) COVID-19: Code(s): U07.1 - COVID-19 Status: Acute Assessment and Plan: Will start remdesivir dexamethasone Rocephin and Zithromax added for antibacterial coverage DS: Summary Hospital Course Reason for hospitalization: Chief Complaint: Shortness of breath Narrative: This is an 80-year-old male with past medical history significant for dyslipidemia, hypertension, benign prostatic hyperplasia, gout. Patient presented to emergency room via EMS after his home pulse oximeter was down to 81% upon EMS arrival these number was confirmed patient was found to be saturating at 80% on room air and was placed on oxygen and brought to the emergency room. Patient tested positive for COVID a few days prior. He has been getting progressively more short of breath, dry cough, body aches and pain, fevers chills, poor appetite, generalized malaise. Preliminary workup was significant for CT angiogram PE protocol of the chest with pulmonary emboli and diffuse COVID-19 pneumonia infiltrates. Patient was on 15 L of oxygen at the time of my visit. Decision has been made to admit the patient for further management evaluation and treatment. Hospital Course: 11/30/2020 13:35 11/28 Interval history: will start patient on dexamethasone 20mg IV daily for 5 days, remedesivir for 5 days, patient states is feeling much better compared to when he arrived not a short of breath, denies any fever or chills, currently on 15 L ox
--- NOTE | 2020-12-01 15:35 | PCRCNOTE ---
Home oxygen evaluation completed. Patient requires 1 lpm oxygen continuously. Arrangements made with [facility] ([phone]). Tank in patient's room for discharge home.
== END 2020-12-01 16:35 | disposition home or self-care (01) | DRG 177 ==
LOC: ANHED 19:27 → ANHIMU 20:38 → ANH3MEDSUR 12-01 11:19 → ANHIMU 12-03 16:10
PROVIDERS: Admitting Provider Internal Medicine; Emergency Provider Emergency Medicine; Visit Provider Family Medicine
DX: U07.1 COVID-19 (principal); J96.01 Acute respiratory failure with hypoxia; J12.82 Pneumonia due to coronavirus disease 2019; I26.99 Other pulmonary embolism without acute cor pulmonale; I10 Essential (primary) hypertension; E78.5 Hyperlipidemia, unspecified; N40.0 Benign prostatic hyperplasia without lower urinary tract symptoms; M10.9 Gout, unspecified
CPT/HCPCS: 36415; 71045; 71275; 80053; 83605; 83615; 85025; 85380; 85610; 86140; 87040; 93005; 94618; 96365; 96366; 96367; 96368; 96372; 96375; 96376; 97165; 99285; A9270; G0378; J0456; J0696; J1100; J1650; J1940; Q9967

== ENCOUNTER 2021-01-07 10:39 | Emergency (ER) | payer MEDICARE, OTHER, SELFPAY ==
[2021-01-07 10:59] VITALS: BP 119/62; PULSE 89; RESP 18; TEMP 36.3; O2SAT 95
--- NOTE | 2021-01-07 11:46 | ED.RECABL ---
HPI - Recheck/Abnormal Lab/Rx General Chief Complaint: Recheck/Abnormal Lab/Rx Stated Complaint: out of eliPyregis Time Seen by Provider: 01/07/21 11:25 Source: patient Mode of arrival: ambulatory Limitations: no limitations History of Present Illness HPI narrative: 80-year-old male Here because he ran out of Bluechilli He was discharged slightly over a month ago after being hospitalized here with Covid and PEs also on his chest x-ray and was discharged with Eliquis However he did not schedule a follow-up appointment at the [facility] and now that he is out he cannot get one quickly He is stable, no real change in his condition, he is requiring supplemental O2 use all the time Related Data Home Medications Medication Instructions Recorded Confirmed allopurinol 300 mg PO DAILY 11/27/20 11/28/20 aspirin 81 mg PO QPM 11/27/20 11/28/20 atorvastatin 80 mg PO QPM 11/27/20 11/28/20 finasteride 5 mg PO DAILY 11/27/20 11/28/20 hydrochlorothiazide 25 mg PO DAILY 11/27/20 11/28/20 nifedipine 90 mg PO DAILY 11/27/20 11/28/20 PreserVision AREDS-2 1 cap PO BID 11/28/20 11/28/20 cholecalciferol (vitamin D3) 50 mcg PO DAILY 11/28/20 11/28/20 niacin 1,000 mg PO HS 11/28/20 11/28/20 Allergies Allergy/AdvReac Type Severity Reaction Status Date / Time No Known Allergies Allergy Mild Verified 01/07/21 11:15 Review of Systems Constitutional: Constitutional: Reports weakness Respiratory: Respiratory: Reports dyspnea [facility] Past Medical History Medical History (Updated 01/07/21 @ 11:46 by Spencer Wade MD) Hypercholesterolemia Family History Family History (Updated 11/28/20 @ 04:22 by Evelyn Lerner RN) Father Tuberculosis Heart disease Sibling Heart disease Social History Social History (Updated 11/27/20 @ 16:28 by Ben Castle DO) Smoking status: Never smoker Alcohol intake: never Substance use: never Spiritual care concerns: Yes (pentacostal) Exam Const: General: alert Orientation/consciousness: patient oriented x3 HENMT: Other: Wearing O2 Resp: Effort & Inspection: normal respiratory effort and not labored Neuro: General: No patient oriented x3 Speech: normal speech Course Course Emergency Course: Discussed with patient, we can provide him with a prescription for 2 months of Eliquis 5 mg twice daily, but his prior authorization may not still be in effect so it is probably better for him to work on this with his PCP or the [facility] Vital Signs Vital signs: Vital Signs Temperature 36.3 C L 01/07/21 10:59 Pulse Rate 89 01/07/21 10:59 Respiratory Rate 18 01/07/21 10:59 Blood Pressure 119/62 01/07/21 10:59 Pulse Oximetry 95 01/07/21 10:59 Temperature 36.3 C L 01/07/21 10:59 Pulse Rate 89 01/07/21 10:59 Respiratory Rate 18 01/07/21 10:59 Blood Pressure 119/62 01/07/21 10:59 Pulse Oximetry 95 01/07/21 10:59 Discharge Plan Discharge Clinical Impression: Pulmonary embolism Patient Disposition: Home, Self-Care Condition: Stable Instructions: Blood Thinners (ED) Additional Instructions: Please contact the [facility] today to schedule a follow-up appointment in their clinic as soon as possible [facility] also has a walk-in medical clinic which you can attend without an appointment every week day from 8 AM to 3 PM which is great for things such as prescription refills and minor illnesses Consider seeing a local primary care doctor also, below Prescriptions: New Eliquis 5 mg tablet 5 mg PO BID Qty: 60 RF: 0 No Action atorvastatin 80 mg Tablet 80 mg PO QPM RF: 0 nifedipine 90 mg Tablet Extended Release 90 mg PO DAILY RF: 0 allopurinol 300 mg Tablet 300 mg PO DAILY RF: 0 aspirin 81 mg Tablet 81 mg PO QPM RF: 0 hydrochlorothiazide 25 mg Tablet 25 mg PO DAILY RF: 0 finasteride 5 mg Tablet 5 mg PO DAILY RF: 0 niacin 500 mg Tablet 1,000 mg PO HS RF: 0 cholecalciferol (vitamin D3) 50 mcg (2,
[2021-01-07 12:05] VITALS: BP 139/74; PULSE 87; RESP 18; O2SAT 94
== END 2021-01-07 12:07 | disposition home or self-care (01) ==
PROVIDERS: Emergency Provider Emergency Medicine
DX: I26.99 Other pulmonary embolism without acute cor pulmonale (principal); Z76.0 Encounter for issue of repeat prescription; E78.5 Hyperlipidemia, unspecified
CPT/HCPCS: 99281; 99283